=== PATIENT | female | born 1960 | race Caucasian/White ===

== ENCOUNTER 2022-04-06 08:42 | Outpatient (CLI) | payer OTHER, SELFPAY ==
--- NOTE | 2022-04-06 08:45 | CRLHL7_ITS ---
For Patients: As a result of the Century Cures Act, medical imaging exams and procedure reports are released immediately into your electronic medical record. You may view this report before your referring provider. If you have questions, please contact your health care provider. BILATERAL SCREENING MAMMOGRAM WITH COMPUTER-AIDED DETECTION AND TOMOSYNTHESIS TECHNIQUE: CC and MLO views were obtained. These mammographic images have been obtained using full-field digital technique. These mammographic images were interpreted with the benefit of computer-aided detection. Breast Tomosynthesis was used in this interpretation. COMPARISON FILM: 04/15/21, 03/31/20, 03/25/19. FINDINGS: The breasts are heterogeneously dense, which may obscure small masses IMPRESSION: There is no radiographic evidence for malignancy. ASSESSMENT: BI-RADS Category 1: Negative RECOMMENDATION: Routine screening mammogram in 1 year. A lay language report of this examination will be provided to the patient. Dario Kelly M.D. Diagnostic Radiologist [email or web address] SUSAN/Dictated by: Dario Kelly MD @ 04/06/2022 12:18:00 PM (Electronically Signed)
== END 2022-04-06 08:43 | disposition home or self-care (01) ==
LOC: MAMMO 08:43
PROVIDERS: PCP Internal Medicine; Visit Provider Internal Medicine
DX: Z12.31 Encounter for screening mammogram for malignant neoplasm of breast (principal); R92.2 Inconclusive mammogram
CPT/HCPCS: 77063; 77067

== ENCOUNTER 2022-09-13 07:47 | Outpatient (CLI) | payer OTHER, SELFPAY ==
[2022-09-13 11:14] LABS: Vitamin D 25 Hydroxy* 64 ng/mL (30-80)
== END 2022-09-13 07:48 | disposition home or self-care (01) ==
LOC: NFLDREF 07:48
PROVIDERS: PCP Internal Medicine; Visit Provider Internal Medicine
DX: E03.9 Hypothyroidism, unspecified (principal); M85.80 Other specified disorders of bone density and structure, unspecified site
CPT/HCPCS: 82306; 84443

== ENCOUNTER 2022-10-06 15:29 | Outpatient (CLI) | payer OTHER, SELFPAY ==
--- NOTE | 2022-10-06 15:30 | CRLHL7_ITS ---
For Patients: As a result of the Century Cures Act, medical imaging exams and procedure reports are released immediately into your electronic medical record. You may view this report before your referring provider. If you have questions, please contact your health care provider. DXA BONE MINERAL DENSITY STUDY Reason for exam: Osteopenia. Current height (in): 69.0 inches. Weight (lb): 136.0. Menopause age: 49. Ethnicity: White. 1. Have you had a previous hip or vertebral fracture? No. 2. Have you had any fractures during your adult life which did not result from significant trauma (e.g., auto accident)? No. 3. Did either of your parents have a hip fracture? No. 4. Do you smoke? No. 5. Have you ever taken Glucocorticoids? No. 6. Do you have rheumatoid arthritis? No. 7. Do you have secondary osteoporosis? No. 8. Do you drink 3 or more alcoholic drinks per day? No. 9. Are you being treated for osteoporosis? No. 10. Have you ever taken any of the following medications: Actonel, Evista, Fosamax, Miacalcin, Reclast, Boniva, Forteo, HRT (i.e. estrogen/hormone therapy), Protelos, Prolia, Vitamin D, Calcium, other ??? please specify. ANSWER: Yes, Fosamax, calcium. 11. Do you have any of the following medical conditions: Anorexia or bulimia, asthma or emphysema, end stage renal disease, hyperparathyroidism, any seizure disorders, cancer, inflammatory bowel diseases, hysterectomy, other ??? please specify. ANSWER: No. 12. What was your maximum height (inches)? 69. 13. Do you perform weight bearing exercise regularly? No. 14. Do you regularly consume dairy products? Yes. 15. Do you drink caffeinated beverages? Yes. 16. At what age did your period start? 15. 17. Are you premenopausal? No. 18. How many full term pregnancies have you had? 2. 19. Have you ever missed your period for more than 6 months in a row (not including or menopause)? No. TECHNIQUE: Bone mineral density study was performed using the [employer]. FINDINGS: The results of the study expressed as bone mineral density (BMD) are as follows: Lumbar spine L1 to L4: BMD: 0.976 g/cm2. T-score: -0.6. Z-score: 1.0. Neck Left: BMD: 0.661 g/cm2. T-score: -1.7. Z-score: -0.3. Right: BMD: 0.641 g/cm2. T-score: -1.9. Z-score: -0.5. Total Left: BMD: 0.824 g/cm2. T-score: -1.0. Z-score: 0.1. Right: BMD: 0.794 g/cm2. T-score: -1.2. Z-score: -0.1. IMPRESSION: Osteopenia. *Comparison exams done prior to 01/2020 were performed on different unit, [facility]. FRAX 10-year Fracture Risk Major Osteoporotic Fracture: 8.5 percent Hip Fracture: 1.1 percent Reported Risk Factors: [place] () Neck BMD=0.641, BMI=20.1 Dario Kelly M.D. Diagnostic Radiologist [email or web address] DSM/[email or web address] PT/Dictated by: Dario Kelly MD @ 10/07/2022 8:49:00 AM (Electronically Signed)
== END 2022-10-06 15:30 | disposition home or self-care (01) ==
LOC: RAD 15:30
PROVIDERS: PCP Internal Medicine; Visit Provider Internal Medicine
DX: M85.89 Other specified disorders of bone density and structure, multiple sites (principal)
CPT/HCPCS: 77080

== ENCOUNTER 2022-12-02 10:37 | Outpatient (CLI) | payer OTHER, SELFPAY | END 2022-12-02 10:38 | disposition home or self-care (01) | LOC: OP CLINIC 10:38 | PROVIDERS: PCP Internal Medicine; Visit Provider Internal Medicine | DX: Z12.11 Encounter for screening for malignant neoplasm of colon (principal); K57.30 Diverticulosis of large intestine without perforation or abscess without bleeding | CPT/HCPCS: 45378; J2250; J3010 ==

== ENCOUNTER 2023-01-10 15:45 | Outpatient (RCR) | payer OTHER, SELFPAY | END 2023-04-18 15:30 | disposition home or self-care (01) | PROVIDERS: PCP Internal Medicine; Visit Provider Internal Medicine | DX: M70.60 Trochanteric bursitis, unspecified hip (principal); M25.551 Pain in right hip; R53.1 Weakness; Z51.89 Encounter for other specified aftercare | CPT/HCPCS: 97110; 97140; 97161 ==

== ENCOUNTER 2023-07-21 13:20 | Outpatient (CLI) | payer OTHER, SELFPAY ==
--- NOTE | 2023-07-21 13:20 | CRLHL7_ITS ---
For Patients: As a result of the Cures Act, medical imaging exams and procedure reports are released immediately into your electronic medical record. You may view this report before your referring provider. If you have questions, please contact your health care provider. BILATERAL SCREENING MAMMOGRAM WITH COMPUTER-AIDED DETECTION AND TOMOSYNTHESIS TECHNIQUE: CC and MLO views were obtained. These mammographic images have been obtained using full-field digital technique. These mammographic images were interpreted with the benefit of computer-aided detection. Breast Tomosynthesis was used in this interpretation. COMPARISON FILM: 04/06/22, 04/15/21, 03/31/20. FINDINGS: The breasts are heterogeneously dense, which may obscure small masses IMPRESSION: There is no radiographic evidence for malignancy. ASSESSMENT: BI-RADS Category 1: Negative RECOMMENDATION: Routine screening mammogram in 1 year. A lay language report of this examination will be provided to the patient. Dario Kelly M.D. Diagnostic Radiologist [email or web address] Transcribed: 5:39 p.mYudith kraus/Dictated by: Dario Kelly MD @ 07/24/2023 12:30:00 PM (Electronically Signed)
== END 2023-07-21 13:21 | disposition home or self-care (01) ==
LOC: MAMMO 13:21
PROVIDERS: PCP Internal Medicine; Visit Provider Internal Medicine
DX: Z12.31 Encounter for screening mammogram for malignant neoplasm of breast (principal); R92.2 Inconclusive mammogram
CPT/HCPCS: 77063; 77067

== ENCOUNTER 2023-09-29 07:37 | Outpatient (CLI) | payer BC, SELFPAY ==
--- OUTSIDE RECORDS SUMMARY | 2023-10-02 08:44 | XMS_ITS | Clinical Summary ---
Author Name Unknown Organization [facility] Address [place], [place] [address] Care Team Providers Care Slunk Skinner Name Role Phone Cammy Kent MD Unavailable [phone] Pcp, No Primary Care Provider Unavailabl e Allergies Active Allergy Reactions Criticality Noted Date Comments Hydrocodone-Acetamin ophen Other - Describe In Comment Field 01/04/2018 Vertigo and cloudy thinking Medications Medication Sig Dispensed Refills Start Date End Date Status MULTIVITAMIN TAB take 1 tablet by oral route once daily with food 0 02/22/2007 Active medication order composer Fish oil, vitamin D, probiotic, Curcumin supplement, all by mouth once daily. 0 03/22/2017 Active Glucosam-Chond Sharma Sod-Vit C-Mn (GLUCOSAMINE-CHONDROI TIN COMPLX) 962-686-36-2.5 mg tab 0 02/27/2017 Act gayla calcium carbonate (CALCIUM 600) 600 mg calcium (1,500 mg) tablet Take 2 tablets by mouth 2 times daily with meals. 0 03/27/2018 Active levothyroxine (SYNTHROID) 50 mcg tabletIndications:Hyp othyroidism, unspecified type Take 1 tablet by mouth once daily. 90 tablet 3 03/27/2018 Active Active Problems Problem Noted Date Diagnosed Date Osteoarthritis of carpometacarpal joints of both thumbs 03/16/2016 Overview: Xray confirmed 02/2016, 2 cortisone injections in each thumb Osteopenia determined by x-ray 03/20/2015 Overview: DXA 02/2015 Routine adult health maintenance 02/19/2013 Overview: Colonoscopy 02/2013 normal repeat in 10 years Unspecified hypothyroidism 02/26/2009 Family history of thyroid disease 01/26/2009 Bunion 01/04/2008 Raynaud's syndrome 01/04/2008 Unspecified hearing loss 01/04/2008 Family history of malignant neoplasm of breast 0 01/04/2008 Adjustment disorder with mixed anxiety and depre ssed mood 08/29/2007 Immunizations Name Administration Dates Next Due AMB Influenza, IIV4 PF (=>6 mos Flulaval,Fluzone Fluarix)(Flu Clinic Only) 05/28/2018,05/29/2017,05/24/2016 Hepatitis A (Adult) 03/05/2013,12/09/2011 Hepatitis B (Adult) 01/06/2014,08/08/2013,2012 Influenza Virus, Unspecified 06/13/2014 Influenza, IIV3 (Age >=3 years) 06/04/2013 Influenza, IIV4 05/29/2017,05/24/2016 Td (Age >=7 Years) 09/04/2003 Tdap 03/05/2013 Typhoid (injectable) 07/16/2018,12/09/2011 Zoster (Zostavax-ZVL, live) 03/01/2011 Family History Medical History Relation Name Comments Good Health Brother 2 Good Health Daughter 1 Good Health Daughter 2 Heart Disease Father Other Father kidney stone Heart Disease Mother Cancer-breast Sister 1 Diagnosed age 50, now age 65 y, mets to bone, stage 4 Thyroid Disease Sister 2 Thyroid Disease Sister 3 Thyroid Disease Sister 4 Relation Name Status Comments Brother 1 Alive Brother 2 Daughter 1 Daughter 2 Father (Age 85) sudde nly Mother (Age 80) Sister 1 Sister 2 Sister 3 Sister 4 Social History Tobacco Use Types Packs/Day Years Used Date Smoking Tobacco: Never Smokeless Tobacco: Never Tobacco Cessation:Counseling Given: Yes Alcohol Use Standard Drinks/Week Comments Yes 1 (1 standard drink = 0.6 oz pur e alcohol) one glass of wine per week PHQ-2 Answer Date Recorded PHQ-2 Score 0 10/21/2018 Sex and Gender Information Value Date Recorded Sex Assigned at Not on file Gender Identity Not on file Sexual Orientation Not on file Obstetrics History Para Term AB IAB SAB Ectopic Multiple Livin g Live Births 2 2 Date Outcome GA Total Labor Labor/2nd/3rd Weight Sex Delivery Anes PTL Maris A1 A5 Name Cl in Last Filed Vital Signs Vital Sign Reading Time Taken Comments Blood Pressure 90/61 10/11/2018 3:53 PM PRECIPITATOR SUPERVISOR Pulse 62 10/11/2018 3:53 PM PRECIPITATOR SUPERVISOR Temperature 35.9 ??C (96.7 ??F) 07/16/2018 4:30 PM CS T Respiratory Rate - - Oxygen Saturation 97% 10/11/2018 3:53 PM PRECIPITATOR SUPERVISOR Inhaled Oxygen Concentration - - Weight 61.3 kg (135 lb 3.2 oz) 10/11/2018 3:53 P M PRECIPITATOR SUPERVISOR Height 174.3 cm (5' 8.62) 07/16/2018 4:30 PM CS T Body Mass Index 20.19 07/16/2018 4:30 PM PRECIPITATOR SUPERVISOR Plan of Treatment Health Maintenance Due Date Last Done Comments COVID-19 vaccine series (#1) 04/25/1960 HIV for age 15-65 10/23/1974 Zoster (shingles) series for age 50+ (2 of 3) 04/26/2011 03/01/2011 Mammogram for age 45-75 03/27/2019 03/27/20 18, 03/16/2017, 03/15/2016, Additional history exists Depression screening for age 12+ 03/29/2019 03/29/2018, 03/27/2018, 03/22/2017, Additional history exists BMI (ht and wt on same day) for age 18+ 07/16/2019 07/16/2018, 03/27/2018, 01/04/2018, Additional history exists Pap test for age 21-65 03/27/2021 8, 03/11/2015, 03/11/2015, Additional history exists Colonoscopy through age 75 02/19/2023 02/19/2013, Tetanus booster 03/05/2023 03/05/2013, 09/04/2003 Lipids for age 45-75 03/27/2023 03/27/2018, 03/15/2016, 03/07/2014, Additional history exists Influenza for age 50-64 04/21/2023 05/28/20 18, 05/29/2017, 05/29/2017, Additional history exists Tdap Completed 03/05/2013 Hepatitis C screening for age 18-79 Completed 03/07/2014 Pneumococcal series for age 6-64 Aged Out No longer eligible based on patient's age to complete this topic Care Teams Slunk Skinner Relationship Specialty Start Date End Date Pcp, No . PCP - General 10/11/18 Cammy Kent MD Surgery - Orthopedics 03/22/17
== END 2023-09-29 07:38 | disposition home or self-care (01) ==
LOC: NFLDREF 10-02 08:30
PROVIDERS: PCP Internal Medicine; Referring Provider Internal Medicine; Visit Provider Internal Medicine
DX: E03.9 Hypothyroidism, unspecified (principal); M85.80 Other specified disorders of bone density and structure, unspecified site; Z13.1 Encounter for screening for diabetes mellitus; Z13.220 Encounter for screening for lipoid disorders
CPT/HCPCS: 80061; 82306; 82947; 84439; 84443

== ENCOUNTER 2024-01-30 08:05 | Outpatient (CLI) | payer BC, SELFPAY ==
--- OUTSIDE RECORDS SUMMARY | 2024-01-30 08:07 | XMS_ITS | Clinical Summary ---
Author Organization [facility] Address [place], [place] [address] Care Team Providers Care Recreation Therapy Aide Name Role Phone Cammy Kent MD Unavailable [phone] Pcp, No Primary Care Provider Unavailabl e [...] Glucosam-Chond Sharma Sod-Vit C-Mn (GLUCOSAMINE-CHONDROI TIN COMPLX) [id number] mg tab 02/27/2017 Act gayla calcium carbonate (CALCIUM 600) [...] Outcome GA Total Labor Labor/2nd/3rd Weight Sex Type Anes PTL Maris A1 A5 Name Clin Last Filed Vital Signs Vital Sign Reading Time Taken Comments Blood Pressure 90/61 10/11/2018 3:53 PM SUPERVISOR HYDROCHLORIC AREA Pulse 62 10/11/2018 3:53 PM SUPERVISOR HYDROCHLORIC AREA Temperature 35.9 ??C (96.7 ??F) 07/16/2018 4:30 PM CS T Respiratory Rate - - Oxygen Saturation 97% 10/11/2018 3:53 PM SUPERVISOR [employer]OCHLORIC AREA Inhaled Oxygen Concentration - - Weight 61.3 kg (135 lb 3.2 oz) 10/11/2018 3:53 P M SUPERVISOR [employer]CH[employer]IC [employer] Height 174.3 cm (5' 8.62) 07/16/2018 4:30 PM CS T Body Mass Index 20.19 07/16/2018 4:30 PM SUPERVISOR [employer]CHLORIC [employer] Plan of Treatment Health Maintenance Due Date Last Done Comments HIV for age 15-65 10/23/1974 Zoster (shingles) [...] 03/27/2023 03/27/2018, 03/15/2016, 03/07/2014, Additional history exists COVID-19 vaccine series (2022- season) 2023 Influenza for age 50-64 04/21/2024 05/28/20 18, 05/29/2017, 05/29/2017, Additional history exists Tdap Completed 03/05/2013 Hepatitis C screening for age 18-79 Completed 03/07/2014 Pneumococcal series for age 6-64 Aged Out No longer eligible based on patient's age to complete this topic Procedures Procedure Name Priority Date/Time Associated Diagnosis Comments PORCELAIN ENAMELER THIN PREP PAP SCREEN IMAGED Routine 03/27/2018 10:00 AM CDT Screening for malignant neoplasm of cervix LIPID PANEL Routine 03/27/2018 9:49 AM CDT Screening cholesterol level XR MAMMO BILAT SCREENING Routine 03/27/2018 9:18 AM CDT Visit for screening mammogram ANTI HCV Routine 03/07/2014 9:02 AM CDT Need for hepatitis C screening test from Last 3 Months or Most Recently Relevant to Health Maintenance Results * PORCELAIN ENAMELER THIN PREP PAP SCREEN IMAGED [[id number]] (03/27/2018 10:00 AM CDT) Case Report Gynecologic Cytology Report ? Case: [id number] ? Authorizing Provider: ??Shaye June ? Collected: ? 03/27/2018 1000 ? RED Ruiz ? Ordering Location: ? [facility] ?? Received: ?03/27/2018 1119 ? Clinic ? First Screen: ?Barbara Velázquez ? Specimen: ?PORCELAIN ENAMELER ThinPrep Vial Screening, Cervical ? 04/07/2018 3:14 PM CDT [facility] ENTRAL LABORATORY INTERPRETATION/ RESULT NEGATIVE FOR INTRAEPITHELIAL LESION OR MALIGNANCY (NIL) (none) 04/07/2018 3:14 PM CDT [facility] [employer] LABORATORY ENTRAL LABORATORY IMEN ADEQUACY Satisfactory for evaluation Endocervical cells cannot be evaluated due to severe atrophy 04/07/2018 3:14 PM CDT [facility] [employer] LABORATORY- ENTRAL LABORATORY HPV REQUEST HPV if ASCUS 04/07/2018 3:14 PM CDT [facility] [employer] LABORATORY-C ENTRAL LABORATORY Date of LMP 200704/07/2018 3:14 PM CDT [facility] [employer] LABORATORY-C ENTRAL LABORATORY Last Pap Date 03/11/15 04/07/2018 3:14 PM CDT [facility] [employer] LABORATORY-C ENTRAL LABORATORY Last Pap Result NIL 3:14 PM CDT [facility] [employer] LABORATORY-C ENTRAL LABORATORY Abnormal Pap or [place]ox Bx in last 5 years No 04/07/2018 3:14 PM CDT [facility] LABORATORY-C ENTRAL LABORATORY Menstrual Status Postmenopausal 04/07/2018 3:14 PM CDT [facility] [employer] LABORATORY-C ENTRAL LABORATORY [place] Bx Done Today No 04/07/2018 3:14 PM CDT [facility] [employer] [facility]-C ENTRAL LABORATORY Additional Information None given 04/07/2018 3:14 PM CDT [facility]- ENTRMI LABORATORY Automated Review Successful 04/07/2018 3:14 PM CDT [facility] ENTRMI LABORATORY Comment:Specimen processed s uccessfully by automated carpet journeyman device, ThinPrep Imaging System, [employer] Note The pap test is a screening technique, not a diagnostic procedure. ??It is used primarily to screen for squamous cancers and precursor lesions. ??Published studies have shown that it is subject to both false negative and false positive results. ??The pap test should not be used as the sole means to diagnose or exclude pre-malignant and malignant lesions. Cytology is screened and interpreted at [facility] - [address], [place] [address] and [facility] - [address]; [place] [address] and [facility] - [address]; [place] [address] and [facility] [address]; [place] [address] 04/07/2018 3:14 PM CDT [facility] LABOR[facility] Other (Cervical) Non-Blood / Unknown 03/27/2018 10:00 AM CDT 03/27/2018 11:19 AM CDT Shaye Menjivar NP PATHOLOGY /CYTOLOGY [facility] [address] [place] [address], [place] * LIPID PANEL (03/27/2018 9:49 AM CDT) CHOLESTEROL,TOTAL 174 100 - 199 mg/dL 03/27/2018 9:15 PM CDT [facility] TRAL LABORATORY TRIGLYCERIDES 78 <150 mg/dL 03/27/2018 9:15 PM CDT [facility] TRAL LABORATORY HDL CHOLESTEROL 68 >40 mg/dL 8 9:15 PM CDT [facility] TRAL LABORATORY NON-HDL CHOLESTEROL 106 <145 mg/dl 03/27/2018 9:15 PM CDT [facility] TRAL LABORATORY CHOL/HDL RATIO 2.56 <4.50 03/27/2018 9:15 PM CDT [facility] TRAL LABORATORY LDL CHOLESTEROL 90 <=130 mg/dL 03/27/2018 9:15 PM CDT [facility] TRAL LABORATORY PROVIDER ORDERED STATUS RANDOM 03/27/2018 9:15 PM CDT [facility] TRAL LABORATORY Blood BLOOD SPECIMEN / Unknown Venipuncture / Unknown 03/27/2018 9:49 AM CDT 03/27/2018 9:49 AM CDT Shaye Menjivar NP CHEMISTRY [facility] [address] [place] [address], * XR MAMMO BILAT SCREENING (03/27/2018 9:18 AM CDT) Anatomical Region Laterality Modality BREASTS, Breast Left, Breast Right Bilateral Mammography Impressions 03/27/2018 12:33 PM CDT ??There is no radiographic evidence for malignancy. ??Recommend annual mammograms. A lay language report of this examination will be provided to the patient. MAMMOGRAM ASSESSMENT: ??ACR 2 Benign Narrative 03/27/2018 12:33 PM CDT XR MAMMO BILAT SCREENING [[id number]] CLINICAL HISTORY: ??This is an asymptomatic 57 y.o. patient. INDICATION FOR EXAM: Mammogram Screening. TECHNIQUE: CC & MLO views were obtained. ??This digital study was evaluated with the assistance of Computer-Aided Detection. COMPARISON FILMS: Yes 03/16/17 [facility] 03/15/16 [facility] FINDINGS: ??Mammographically, the breast tissue is heterogeneously dense. ?? No suspicious masses or microcalcifications. ??Benign appearing calcifications within both breasts and Benign appearing asymmetry within left breast. Shaye Menjivar NP MAMMO * ANTI HCV (03/07/2014 9:02 AM CDT) HEPATITIS C ANTIBODY Non-Reacti ve Non-Reacti ve 03/07/2014 1:35 PM CDT [facility] TRAL LABORATORY Blood specimen (specimen) BLOOD SPECIMEN / Unknown Venipuncture / Unknown 03/07/2014 9:02 AM CDT 03/07/2014 9:03 AM CDT Narrative [facility] - 03/07/2014 1:35 PM CDT Antibodies to HCV not detected; does not exclude the possibility of exposure to HCV. Shaye Menjivar DIRECTOR EQUIPMENT SEND OUTS [facility] [address] [place] [address], from Last 3 Months or Most Recently Relevant to Health Maintenance Care Teams Recreation Therapy Aide Relationship Specialty Start Date End Date Pcp, No . PCP - General 10/11/18 Cammy Kent MD Surgery - Orthopedics 03/22/17
--- NOTE | 2024-01-30 08:15 | CRLHL7_ITS ---
For Patients: As a result of the 21st Century Cures Act, medical imaging exams and procedure reports are released immediately into your electronic medical record. You may view this report before your referring provider. If you have questions, please contact your health care provider. INDICATION: Chronic low back pain. Left hip pain. TECHNIQUE : Lumbar spine MRI without contrast. COMPARISON: None. FINDINGS : Five lumbar type vertebral bodies, with the last fully formed disc space designated as L5-S1. Normal lumbar lordosis. Mild levoconvex lumbar scoliosis. No acute compression fractures. Bilateral L4 and L5 pedicle fractures/stress defects with associated bone marrow edema. Lower cord/conus signal is normal. The conus terminates at a normal location. No intradural lesion. No extraspinal soft tissue abnormalities. Discs/Endplates: Advanced disc height loss, disc desiccation and degenerative endplate remodeling at L4-5 centrally especially on the right and L5-S1 associated type 1 reactive marrow changes at these levels. Mild disc height loss and disc desiccation elsewhere. Findings at individual levels as follows: T11-12: No spinal canal or neural foraminal stenosis. T12-L1: No spinal canal or neural foraminal stenosis. L1-2: Mild disc bulge with shallow central protrusion component. No spinal canal or neural foraminal stenosis. L2-3: Mild disc bulge. Bilateral facet arthrosis. No substantial spinal canal or neural foraminal stenosis. L3-4: Mild disc bulge. Bilateral facet arthrosis. No spinal canal or neural foraminal stenosis. L4-5: Moderate disc bulge with overlying osteophytic ridging, asymmetric to the right. A superimposed right far lateral protrusion component which contacts the right L4 nerve root. Bilateral facet arthrosis. Mild spinal canal stenosis and mild bilateral neural foraminal stenosis. L5-S1: Trace anterolisthesis. Moderate disc bulge with underlying osteophytic ridging, asymmetric to the left. Left-sided facet arthrosis. Moderate left neural foraminal stenosis. No right neural foraminal stenosis or spinal canal stenosis. Imaged SI joints: Bilateral arthrosis. Imaged sacrum: Within normal limits. IMPRESSION: 1. Bilateral L4 and L5 pedicle fractures/stress defects with associated bone marrow edema. 2. At L4-5, right far lateral protrusion which contacts the right L4 nerve root. 3. At L5-S1, moderate left neural foraminal stenosis. 4. Disc degeneration most advanced at L4-5 and L5-S1, where there is accompanying type 1 reactive marrow changes. Dictated by Nikolai Evans MD @ 01/30/2024 3:59:13 PM (Electronically Signed)
== END 2024-01-30 08:06 | disposition home or self-care (01) ==
LOC: MRI 08:06
PROVIDERS: PCP Internal Medicine; Visit Provider Internal Medicine
DX: M54.50 Low back pain, unspecified (principal); M51.26 Other intervertebral disc displacement, lumbar region; M48.07 Spinal stenosis, lumbosacral region; M51.36 Other intervertebral disc degeneration, lumbar region; M51.37 Other intervertebral disc degeneration, lumbosacral region
CPT/HCPCS: 72148

== ENCOUNTER 2024-02-12 08:58 | Outpatient (CLI) | payer BC, SELFPAY ==
--- OUTSIDE RECORDS SUMMARY | 2024-02-12 09:37 | XMS_ITS | Clinical Summary ---
Author Organization [employer] [facility] Address [place], [place] [address] Care Team Providers Care Certified Nurse Midwife Name Role Phone Cammy Kent MD Unavailable [phone] Pcp, No Primary Care Provider Unavailabl e [...] Glucosam-Chond Sharma Sod-Vit C-Mn (GLUCOSAMINE-CHONDROI TIN COMPLX) [phone] mg tab 02/27/2017 Act gayla calcium carbonate [...] Comments Blood Pressure 90/61 10/11/2018 3:53 PM PLASTER MOLDER Pulse 62 10/11/2018 3:53 PM PLASTER MOLDER Temperature 35.9 ??C (96.7 ??F) 07/16/2018 4:30 PM CS T Respiratory Rate - - Oxygen Saturation 97% 10/11/2018 3:53 PM PLASTER MOLDER Inhaled Oxygen Concentration - - Weight 61.3 kg (135 lb 3.2 oz) 10/11/2018 3:53 P M PLASTER MOLDER Height 174.3 cm (5' 8.62) 07/16/2018 4:30 PM CS T Body Mass Index 20.19 07/16/2018 4:30 PM PLASTER MOLDER Plan of Treatment Health Maintenance Due Date [...] Procedure Name Priority Date/Time Associated Diagnosis Comments CERTIFIED HYPERBARIC TECHNOLOGIST THIN PREP PAP SCREEN IMAGED Routine 03/27/2018 [...] Recently Relevant to Health Maintenance Results * CERTIFIED HYPERBARIC TECHNOLOGIST THIN PREP PAP SCREEN IMAGED [[id number]] (03/27/2018 10:00 AM CDT) Case Report Gynecologic Cytology Report ? Case: [id number] ? Authorizing Provider: ??Shaye June ? Collected: ? 03/27/2018 1000 ? RED Ruiz ? Ordering Location: ? [facility] ?? Received: ?03/27/2018 1119 ? Clinic ? First Screen: ?Barbara Velázquez ? Specimen: ?CERTIFIED HYPERBARIC TECHNOLOGIST ThinPrep Vial Screening, Cervical ? 04/07/2018 3:14 PM CDT [facility] ENTRAL LABORATORY INTERPRETATION/ RESULT NEGATIVE FOR INTRAEPITHELIAL LESION OR MALIGNANCY (NIL) (none) 04/07/2018 3:14 PM CDT [facility] LABORATORY ENTRAL LABORATORY IMEN ADEQUACY Satisfactory for evaluation Endocervical cells cannot be evaluated due to severe atrophy 04/07/2018 3:14 PM CDT [facility] LABORATORY- ENTRAL LABORATORY HPV REQUEST HPV if ASCUS 04/07/2018 3:14 PM CDT [facility] LABORATORY-C ENTRAL LABORATORY Date of LMP 200704/07/2018 3:14 PM CDT [facility] LABORATORY-C ENTRAL LABORATORY Last Pap Date 03/11/15 04/07/2018 3:14 PM CDT [facility] LABORATORY-C ENTRAL LABORATORY Last Pap Result NIL 3:14 PM CDT [facility] LABORATORY-C ENTRAL LABORATORY Abnormal Pap or Sutherland Bx in last 5 years No 04/07/2018 3:14 PM CDT [facility] LABORATORY-C ENTRAL LABORATORY Menstrual Status Postmenopausal 04/07/2018 3:14 PM CDT [facility] LABORATORY-C ENTRAL LABORATORY Sutherland Bx Done Today No 04/07/2018 3:14 PM CDT [facility] [employer] [facility]-C ENTRAL LABORATORY Additional Information None given 04/07/2018 3:14 PM CDT [facility]- [facility]TRAK LABORATORY Automated Review Successful 04/07/2018 3:14 PM CDT [facility]TRAK LABORATORY Comment:Specimen processed s uccessfully by automated child guidance counselor device, ThinPrep Imaging System, [employer] Note The pap test is a [...] lesions. Cytology is screened and interpreted at [facility] - [address], [place] [address] and [facility] - [address]; [place] [address] and [facility] - [address]; [place] [address] and [facility] [address]; [place] [address] 04/07/2018 3:14 PM CDT [facility] Other (Cervical) Non-Blood / Unknown 03/27/2018 10:00 AM CDT 03/27/2018 11:19 AM CDT Shaye Menjivar NP PATHOLOGY /CYTOLOGY [facility] [address] [place] [address], [place] * LIPID PANEL (03/27/2018 9:49 AM CDT) CHOLESTEROL,TOTAL 174 100 - 199 mg/dL 03/27/2018 9:15 PM CDT [facility] TRAL LABORATORY TRIGLYCERIDES 78 <150 mg/dL 03/27/2018 9:15 PM CDT [facility] HDL CHOLESTEROL 68 >40 mg/dL 8 9:15 PM CDT [facility] NON-HDL CHOLESTEROL 106 <145 mg/dl 03/27/2018 9:15 PM CDT [facility] CHOL/HDL RATIO 2.56 <4.50 03/27/2018 9:15 PM CDT [facility] LDL CHOLESTEROL 90 <=130 mg/dL 03/27/2018 9:15 PM CDT [facility] PROVIDER ORDERED STATUS RANDOM 03/27/2018 9:15 PM CDT [facility] Blood BLOOD SPECIMEN / Unknown Venipuncture / Unknown 03/27/2018 9:49 AM CDT 03/27/2018 9:49 AM CDT Shaye Menjivar NP CHEMISTRY [facility] [address] [place] [address], * XR MAMMO BILAT SCREENING (03/27/2018 9:18 AM CDT) Anatomical Region Laterality Modality BREASTS, Breast Left, Breast Right Bilateral Mammography Impressions 03/27/2018 12:33 PM CDT ??There is no radiographic evidence for malignancy. ??Recommend annual mammograms. A lay language report of this examination will be provided to the patient. MAMMOGRAM ASSESSMENT: ??ACR 2 Benign Narrative 03/27/2018 12:33 PM CDT XR MAMMO BILAT SCREENING [[id number]] CLINICAL HISTORY: ??This is an asymptomatic 57 y.o. patient. INDICATION FOR EXAM: Mammogram Screening. TECHNIQUE: CC & MLO views were obtained. ??This digital study was evaluated with the assistance of Computer-Aided Detection. COMPARISON FILMS: Yes 03/16/17 [facility] 03/15/16 [facility] FINDINGS: ??Mammographically, the breast tissue is heterogeneously dense. ?? No suspicious masses or microcalcifications. ??Benign appearing calcifications within both breasts and Benign appearing asymmetry within left breast. Shaye Menjivar NP MAMMO * ANTI HCV (03/07/2014 9:02 AM CDT) HEPATITIS C ANTIBODY Non-Reacti ve Non-Reacti ve 03/07/2014 1:35 PM CDT [facility] Blood specimen (specimen) BLOOD SPECIMEN / Unknown Venipuncture / Unknown 03/07/2014 9:02 AM CDT 03/07/2014 9:03 AM CDT Narrative [facility] - 03/07/2014 1:35 PM CDT Antibodies to HCV not detected; does not exclude the possibility of exposure to HCV. Shaye Menjivar MEDICAL EQUIPMENT REPAIR TECHNICIAN SEND OUTS [facility] [address] [place] [address], from Last 3 Months or Most Recently Relevant to Health Maintenance Care Teams Certified Nurse Midwife Relationship Specialty Start Date End Date Pcp, No . PCP - General 10/11/18 Cammy Kent MD Surgery - Orthopedics 03/22/17
== END 2024-02-12 08:59 | disposition home or self-care (01) ==
PROVIDERS: PCP Internal Medicine; Visit Provider Internal Medicine
DX: M80.08XA Age-related osteoporosis with current pathological fracture, vertebra(e), initial encounter for fracture (principal)
CPT/HCPCS: 80053; 83735; 83970; 84100; 84443

== ENCOUNTER 2024-05-13 08:15 | Outpatient (RCR) | payer BC, SELFPAY | END 2024-05-13 09:07 | disposition home or self-care (01) | PROVIDERS: PCP Internal Medicine; Visit Provider Internal Medicine | DX: M54.50 Low back pain, unspecified (principal); Z51.89 Encounter for other specified aftercare | CPT/HCPCS: 97110; 97162 ==

== ENCOUNTER 2024-06-10 08:57 | Outpatient (CLI) | payer BC, SELFPAY ==
--- OUTSIDE RECORDS SUMMARY | 2024-06-11 16:42 | XMS_ITS | Clinical Summary ---
Author Organization Replaced by [facility] Address [address] [place] [address] Care Team Providers Care Quilt Sewer Name Role Phone Unavailable Primary Care Provider Unavailabl e Source Comments You are receiving this document as you are listed as the primary care provider,follow-up provider, or the patient has been referred to you for consultation.This is in compliance with the Medicare andCommunity Memorial Hospitalcaid EHR Incentive Program,which states Providers who transition their patient to another setting of careor provider of care or refers their patient to another provider of care shouldprovide summary care record for each transition of care or referral. Embrane Medications Medication Sig Dispensed Refills Start Date End Date Status levothyroxine (SYNTHROID) 75 MCG tablet TAKE 1 TABLET(75 MCG) BY MOUTH DAILY 1 HOUR BEFORE OR 2 HOURS AFTER A MEAL 90 Tablet 2 06/11/2024 Active levothyroxine (SYNTHROID) 75 MCG tablet Take 1 Tablet (75 mcg) by mouth daily. Take at least one hour before or two hours after meal. 90 Tablet 03/13/2024 06/11/2024 Discontinued Encounters Date Type Department Care Team Description 06/09/2024 Refill [facility] [address] [facility] [address] [facility] [place] [address] Milka Obando MD Refill (levothyroxine (SYNTHROID) 75 MCG tablet [Pharmacy Med Name: LEVOTHYROXINE 0.075MG (75MCG) TABS]) 03/11/2024 8:40 AM CDT Lab Visit [facility] [address] [place] [address] Localized osteoporosis with current pathological fracture, initial encounter; Stress fracture of lumbar vertebra, initial encounter; Hypothyroidism (acquired) ([facility]) from Last 3 Months Social History Tobacco Use Types Packs/Day Years Used Date Smoking Tobacco: Never Assessed Sex and Gender Information Value Date Recorded Sex Assigned at Female 03/06/2024 7:33 PM CDT Gender Identity Female 03/06/2024 7:33 PM CDT Sexual Orientation Straight 03/06/2024 7: 33 PM CDT Plan of Treatment Health Maintenance Due Date Last Done Comments Cervical Cancer Screening Due 1960 Colon Cancer Screening Plan Due 1959 Hep C Screening (Preventive Services) 1959 HIV Screening (Preventive Services) 1975 Adult Preventive Visit 10/23/1977 Cholesterol 10/23/2004 Mammogram 03/27/2019 03/27/2018 COVID-19 Vaccine ( season) 2024 05/23/2023, 03/01/2022, 07/11/2021, Additional history exists Influenza (#1) 2024 05/23/2023, 10/2021, 05/18/2021, Additional history exists DTaP/Tdap/Td (3 - Tdap) 09/19/2032 09/19/19, 03/05/2013, 09/04/2003 RSV (1 - 1-dose 75+ series) 10/23/2034 HepA Aged Out 03/05/2013, 12/09/2011 No lo nger eligible based on patient's age to complete this topic Zoster/Shingles Completed 06/19/2019, 01/2019, 03/01/2011 HepB Aged Out No longer eligi ble based on patient's age to complete this topic Hib Aged Out No longer eligi ble based on patient's age to complete this topic IPV (Polio) Aged Out No longer eligi ble based on patient's age to complete this topic Infant RSV Aged Out No longer eligi ble based on patient's age to complete this topic MCV4 Aged Out No longer eligi ble based on patient's age to complete this topic Pneumococcal Aged Out No longer eligi ble based on patient's age to complete this topic Procedures Procedure Name Priority Date/Time Associated Diagnosis Comments CREATININE, UR 24 HR Routine 03/11/2024 8:42 AM CDT Localized osteoporosis with current pathological fracture, initial encounter Stress fracture of lumbar vertebra, initial encounter Hypothyroidism (acquired) ([facility]) CALCIUM UR 24 HR Routine 03/11/2024 8:42 AM CDT Localized osteoporosis with current pathological fracture, initial encounter Stress fracture of lumbar vertebra, initial encounter Hypothyroidism (acquired) ([facility]) from Last 3 Months Results * Creatinine, Urine 24 Hr (03/11/2024 8:42 AM CDT) Urine Volume 2,100 mL 03/11/2024 10:25 AM CDT [facility] Creatinine, Urine, Random 50 >20 mg/dL 03/11/2024 10:25 AM CDT [facility] Creatinine, Urine, 24 Hours 1,050 670 - 1,590 mg/24 Hr 03/11/2024 10:25 AM CDT [facility] Urine Non-blood Collection / Unknown 03/11/2024 8:42 AM CDT 03/11/2024 8:42 AM CDT Milka Obando MD LAB_1 [facility] [address] [place] [address] [address] [place] [address] * Calcium Urine 24 Hr (03/11/2024 8:42 AM CDT) Urine Volume 2,100 mL 03/11/2024 1:49 PM CDT [facility] Calcium, Urine, Random 14.2 mg/dL 03/11/2024 1:49 PM CDT [facility] Calcium, Urine, 24 Hours 298 100 - 300 mg/24 hr 03/11/2024 1:49 PM CDT [facility] Creatinine, Urine, Random 47 >20 mg/dL 03/11/2024 1:49 PM CDT [facility] Urine Non-blood Collection / Unknown 03/11/2024 8:42 AM CDT 03/11/2024 8:42 AM CDT Milka Obando MD LAB_1 [facility] [address] [place] [address], [facility] [address] [place] [address], [facility] from Last 3 Months
--- OUTSIDE RECORDS SUMMARY | 2024-06-11 16:42 | XMS_ITS | Encounter Summary ---
Author Organization [facility] Address [address] [place] [address] Care Team Providers Care Linux Kernel Developer Name Role Phone Unavailable Primary Care Provider Unavailabl e Encounter Details Date Type Department Care Team (Late st Contact Info) Description 03/11/2024 8:40 AM CDT Lab Visit [facility] [address] [place] [address] Localized osteoporosis with current pathological fracture, initial encounter; Stress fracture of lumbar vertebra, initial encounter; Hypothyroidism (acquired) ([facility]) Social History Tobacco Use Types Packs/Day Years Used Date Smoking Tobacco: Never Assessed Sex and Gender Information Value Date Recorded Sex Assigned at Female 03/06/2024 7:33 PM CDT Gender Identity Female 03/06/2024 7:33 PM CDT Sexual Orientation Straight 03/06/2024 7: 33 PM CDT documented as of this encounter Plan of Treatment Not on file documented as of this encounter Procedures Procedure Name Priority Date/Time Associated Diagnosis Comments CREATININE, UR 24 HR Routine 03/11/2024 8:42 AM CDT Localized osteoporosis with current pathological fracture, initial encounter Stress fracture of lumbar vertebra, initial encounter Hypothyroidism (acquired) ([facility]) CALCIUM UR 24 HR Routine 03/11/2024 8:42 AM CDT Localized osteoporosis with current pathological fracture, initial encounter Stress fracture of lumbar vertebra, initial encounter Hypothyroidism (acquired) ([facility]) documented in this encounter Results * Creatinine, Urine 24 Hr (03/11/2024 8:42 AM CDT) Urine Volume 2,100 mL 03/11/2024 10:25 AM CDT [facility] Creatinine, Urine, Random 50 >20 mg/dL 03/11/2024 10:25 AM CDT [facility] Creatinine, Urine, 24 Hours 1,050 670 - 1,590 mg/24 Hr 03/11/2024 10:25 AM CDT [facility] Urine Non-blood Collection / Unknown 03/11/2024 8:42 AM CDT 03/11/2024 8:42 AM CDT Milka Obando MD LAB_1 [facility] [address] [place] [address] [address] [place] [address] * Calcium Urine 24 Hr (03/11/2024 8:42 AM CDT) Urine Volume 2,100 mL 03/11/2024 1:49 PM CDT [facility] Calcium, Urine, Random 14.2 mg/dL 03/11/2024 1:49 PM CDT [facility] Calcium, Urine, 24 Hours 298 100 - 300 mg/24 hr 03/11/2024 1:49 PM CDT [facility] Creatinine, Urine, Random 47 >20 mg/dL 03/11/2024 1:49 PM CDT [facility] Urine Non-blood Collection / Unknown 03/11/2024 8:42 AM CDT 03/11/2024 8:42 AM CDT Milka Obando MD LAB_1 [facility] [address] [place], [place] [address] [address] [place] [address] documented in this encounter Visit Diagnoses Diagnosis Localized osteoporosis with current pathological fracture, initial encounter Stress fracture of lumbar vertebra, initial encounter Hypothyroidism (acquired) ([facility]) Unspecified hypothyroidism documented in this encounter
--- OUTSIDE RECORDS SUMMARY | 2024-06-11 16:42 | XMS_ITS | Encounter Summary ---
Author Organization [facility] Address [address] [address] Care Team Providers Care Farm General Manager Name Role Phone Unavailable Primary Care Provider Unavailabl e Encounter Details Date Type Department Care Team (Late st Contact Info) Description 03/08/2024 9:40 AM CDT Lab Visit [facility] [address] [place] [address] Routine general medical examination at health care facility Social History Tobacco Use Types Packs/Day Years [...] Procedure Name Priority Date/Time Associated Diagnosis Comments CONTAINER TEST Routine 03/08/2024 9:14 AM CDT Routine general medical examination at health care facility URINE CONTAINER, 24 HOUR Routine 03/08/2024 9:14 AM CDT Routine general medical examination at health care facility documented in this encounter Results * Urine Container, 24 Hour (03/08/2024 9:14 AM CDT) Container Given Done 03/08/2024 3:00 PM CDT [facility] Other Specimen Type 03/08/2024 9:14 AM CDT 03/08/2024 1:18 PM CDT Milka Obando MD LAB_1 Performing Organization Address City/State/[facility] Co de Phone Number [facility] [address] [place] [address] documented in this encounter Visit Diagnoses Diagnosis Routine general medical examination at health care facility Routine general medical examination at a health care facility documented in this encounter
--- OUTSIDE RECORDS SUMMARY | 2024-06-11 16:42 | XMS_ITS | Encounter Summary ---
Author Organization [facility] Address [address] [place] [address] Care Team Providers Care Parts Casting Machine Operator Name Role Phone Unavailable Primary Care Provider Unavailabl e Reason for Visit * Reason Comments Refill levothyroxine (SYNTH ROID) 75 MCG tablet [Pharmacy Med Name: LEVOTHYROXINE 0.075MG (75MCG) TABS] Encounter Details Date Type Department Care Team (Late st Contact Info) Description 06/09/2024 Refill [place] [address] [place] [address]. [place], [place] [id number] Radha Obando MD [address] [place] [phone] Refill (levothyroxine (SYNTHROID) 75 MCG tablet [Pharmacy Med Name: LEVOTHYROXINE 0.075MG (75MCG) TABS]) Social History Tobacco Use Types Packs/Day Years Used Date Smoking Tobacco: Never Assessed Sex and Gender Information Value Date Recorded Sex Assigned at Female 03/06/2024 7:33 PM CDT Gender Identity Female 03/06/2024 7:33 PM CDT Sexual Orientation Straight 03/06/2024 7: 33 PM CDT documented as of this encounter Nursing Notes * Laurie Ansari, RN - 06/11/2024 1:31 PM CDT Please advise on Rx dose since labs have been drawn, thank you! Component Latest Ref Rng 03/08/2024 TSH, Sensitive 0.30 - 4.50 uIU/mL 4.82 (H) Legend: (H) High * Jessika Mcadams - 06/09/2024 3:51 AM CDT levothyroxine (SYNTHROID) 75 MCG tablet [Pharmacy Med Name: LEVOTHYROXINE 0.075MG (75MCG) TABS] Hypothyroidism -> TSH is abnormal (4.82 mIU/L lies outside 0.2 mIU/L - 4.5 mIU/L) -> Refill x 9 months, qty: 90, refills: 2 (until due for an office visit) Last qualifying visit: 03/07/2024 (in [facility] ENDOCRINOLOGY) Next scheduled visit: None Last ordered by RADHA OBANDO L: 03/13/2024 (88 days ago) QTY: 90, Refills: 0, Sig: take 1 tablet (75 mcg) by mouth daily. take at least one hour before or two hours after meal. (changed but equivalent) TSH: 4.82 mIU/L on 03/08/2024 [facility] Embedded Refills, Reference: [id number], 06/09/2024 3:51:43 AM JACKIET, Isaias: TODD PNREFRUDOLPH ([id number]) documented in this encounter Plan of Treatment Not on file documented as of this encounter Visit Diagnoses Not on filedocumented in this encounter
--- OUTSIDE RECORDS SUMMARY | 2024-06-11 16:42 | XMS_ITS | Clinical Summary ---
Author Organization [facility] Address [place], [place] [address] Care Team Providers Care Media Associate Name Role Phone Cammy Kent MD Unavailable [phone] Pcp, No Primary Care Provider Unavailabl e [...] Glucosam-Chond Sharma Sod-Vit C-Mn (GLUCOSAMINE-CHONDROI TIN COMPLX) [phone] mg tab 02/27/2017 Act gayla calcium carbonate (CALCIUM 600) 600 mg calcium (1,500 mg) tablet Take 2 tablets by mouth 2 times daily with meals. 0 03/27/2018 Active levothyroxine (SYNTHROID) 50 mcg tabletIndications:Hyp othyroidism, unspecified type Take 1 tablet by mouth once daily. 90 tablet 3 03/27/2018 Active Active Problems Problem Noted Date Diagnosed Date Osteoarthritis of carpometacarpal joints of both thumbs 03/16/2016 Overview (03/22/2017): Xray confirmed 02/2016, 2 cortisone injections in each thumb Osteopenia determined by x-ray 03/20/2015 Overview (03/20/2015): DXA 02/2015 Routine adult health maintenance 02/19/2013 Overview (02/19/2013): Colonoscopy 02/2013 normal repeat in 10 years [...] Comments Blood Pressure 90/61 10/11/2018 3:53 PM REAL ESTATE TEACHER Pulse 62 10/11/2018 3:53 PM REAL ESTATE TEACHER Temperature 35.9 ??C (96.7 ??F) 07/16/2018 4:30 PM CS T Respiratory Rate - - Oxygen Saturation 97% 10/11/2018 3:53 PM REAL ESTATE TEACHER Inhaled Oxygen Concentration - - Weight 61.3 kg (135 lb 3.2 oz) 10/11/2018 3:53 P M REAL ESTATE TEACHER Height 174.3 cm (5' 8.62) 07/16/2018 4:30 PM CS T Body Mass Index 20.19 07/16/2018 4:30 PM REAL ESTATE TEACHER Plan of Treatment Health Maintenance Due Date [...] 03/07/2014, Additional history exists COVID-19 vaccine series ( season) 2024 Influenza for age 50-64 04/21/2024 05/28/20 18, 05/29/2017, 05/29/2017, Additional history exists Tdap Completed 03/05/2013 Hepatitis C screening for age 18-79 Completed 03/07/2014 Pneumococcal series for age 6-64 Aged Out No longer eligible based on patient's age to complete this topic Procedures Procedure Name Priority Date/Time Associated Diagnosis Comments AERIAL GUNNER THIN PREP PAP SCREEN IMAGED Routine 03/27/2018 [...] Recently Relevant to Health Maintenance Results * AERIAL GUNNER THIN PREP PAP SCREEN IMAGED [[id number]] (03/27/2018 10:00 AM CDT) Case Report Gynecologic Cytology Report ? Case: [id number] ? Authorizing Provider: ??Shaye June ? Collected: ? 03/27/2018 1000 ? RED Ruiz ? Ordering Location: ? [facility] ?? Received: ?03/27/2018 1119 ? Clinic ? First Screen: ?Barbara Velázquez ? Specimen: ?AERIAL GUNNER ThinPrep Vial Screening, Cervical ? 04/07/2018 3:14 PM CDT [facility] INTERPRETATION/ RESULT NEGATIVE FOR INTRAEPITHELIAL LESION OR MALIGNANCY (NIL) (none) 04/07/2018 3:14 PM CDT [facility] LABORAT[facility]-C ENTRAL LABORATORY IMEN ADEQUACY Satisfactory for evaluation Endocervical cells cannot be evaluated due to severe atrophy 04/07/2018 3:14 PM CDT [facility] LABORAT[facility]-C ENTRAL LABORATORY HPV REQUEST HPV if ASCUS 04/07/2018 3:14 PM CDT [facility] Date of LMP 200704/07/2018 3:14 PM CDT [facility]ORAT[facility]-C ENTRAL LABORATORY Last Pap Date 03/11/15 04/07/2018 3:14 PM CDT [facility]-C ENTRAL LABORATORY Last Pap Result NIL 8 3:14 PM CDT [facility]-C ENTRAL LABORATORY Abnormal Pap or Pierre Part Bx in last 5 years No 04/07/2018 3:14 PM CDT [facility] Menstrual Status Postmenopausal 04/07/2018 3:14 PM CDT [facility] Pierre Part Bx Done Today No 04/07/2018 3:14 PM CDT [facility] Additional Information None given 04/07/2018 3:14 PM CDT [facility] Automated Review Successful 04/07/2018 3:14 PM CDT [facility] Comment:Specimen processed s uccessfully by automated rug sizer device, ThinPrep Imaging System, [employer] Note The pap test is a [...] lesions. Cytology is screened and interpreted at [facility] - [address], [place] [address] and [facility] - [address]; [place] [address] and [facility] - [address]; [place] [address] and [facility] [address]; [place] [address] 04/07/2018 3:14 PM CDT [facility] Other (Cervical) Non-Blood / Unknown 03/27/2018 10:00 AM CDT 03/27/2018 11:19 AM CDT Shaye Menjivar NP PATHOLOGY /CYTOLOGY [facility] [address] [place] [address], * LIPID PANEL (03/27/2018 9:49 AM CDT) CHOLESTEROL,TOTAL 174 100 - 199 mg/dL 03/27/2018 9:15 PM CDT [facility] TRIGLYCERIDES 78 <150 mg/dL 03/27/2018 9:15 PM CDT [facility] HDL CHOLESTEROL 68 >40 mg/dL 8 9:15 PM CDT [facility] NON-HDL CHOLESTEROL 106 <145 mg/dl 03/27/2018 9:15 PM CDT [facility] CHOL/HDL RATIO 2.56 <4.50 03/27/2018 9:15 PM CDT [facility] LDL CHOLESTEROL 90 <=130 mg/dL 03/27/2018 9:15 PM CDT [facility] PROVIDER ORDERED STATUS RANDOM 03/27/2018 9:15 PM CDT [facility] Blood BLOOD SPECIMEN / Unknown Venipuncture / Unknown 03/27/2018 9:49 AM CDT 03/27/2018 9:49 AM CDT Shaye Menjivar NP CHEMISTRY [facility] [address] [place] [address], [place] * XR MAMMO BILAT SCREENING (03/27/2018 9:18 AM CDT) Anatomical Region Laterality Modality BREASTS, Breast Left, Breast Right Bilateral Mammography Impressions 03/27/2018 12:33 PM CDT ??There is no radiographic evidence for malignancy. ??Recommend annual mammograms. A lay language report of this examination will be provided to the patient. MAMMOGRAM ASSESSMENT: ??ACR 2 Benign Narrative 03/27/2018 12:33 PM CDT XR MAMMO BILAT SCREENING [[id number]] CLINICAL HISTORY: ??This is an asymptomatic 57 y.o. patient. INDICATION FOR EXAM: Mammogram Screening. TECHNIQUE: CC & MLO views were obtained. ??This digital study was evaluated with the assistance of Computer-Aided Detection. COMPARISON FILMS: Yes 03/16/17 [facility] 03/15/16 [facility] FINDINGS: ??Mammographically, the breast tissue is heterogeneously dense. ?? No suspicious masses or microcalcifications. ??Benign appearing calcifications within both breasts and Benign appearing asymmetry within left breast. Shaye Menjivar NP MAMMO * ANTI HCV (03/07/2014 9:02 AM CDT) HEPATITIS C ANTIBODY Non-Reacti ve Non-Reacti ve 03/07/2014 1:35 PM CDT [facility] Blood specimen (specimen) BLOOD SPECIMEN / Unknown Venipuncture / Unknown 03/07/2014 9:02 AM CDT 03/07/2014 9:03 AM CDT Narrative [facility] - 03/07/2014 1:35 PM CDT Antibodies to HCV not detected; does not exclude the possibility of exposure to HCV. Shaye Menjivar BLOCK CAPTAIN SEND OUTS [facility] [address] [place] [address], from Last 3 Months or Most Recently Relevant to Health Maintenance Care Teams Media Associate Relationship Specialty Start Date End Date Pcp, No . PCP - General 10/11/18 Cammy Kent MD Surgery - Orthopedics 03/22/17
--- OUTSIDE RECORDS SUMMARY | 2024-06-11 16:42 | XMS_ITS | Encounter Summary ---
Author Organization [facility] Address [address], [place] [address] Care Team Providers Care Garment Turner Name Role Phone Unavailable Primary Care Provider Unavailabl e Encounter Details Date Type Department Care Team (Late st Contact Info) Description 03/07/2024 8:30 AM CDT Telemedicine [place] [address] [place] [address]. [place], [place] [address] Milka Obando MD [address] [place] [address] Localized osteoporosis with current pathological fracture, initial encounter (Primary Dx); Stress fracture of lumbar vertebra, initial encounter; Hypothyroidism (acquired) ([facility]) Social History Tobacco Use Types Packs/Day Years Used Date Smoking Tobacco: Never Assessed Sex and Gender Information Value Date Recorded Sex Assigned at Female 03/06/2024 7:33 PM CDT Gender Identity Female 03/06/2024 7:33 PM CDT Sexual Orientation Straight 03/06/2024 7: 33 PM CDT documented as of this encounter Progress Notes * Milka Obando MD - 03/07/2024 8:30 AM CDT [facility] Department of Endocrinology, Diabetes and Metabolism Clinic Note Name: Yazmin Mendes This visit was conducted via video. Reason for visit: osteoporosis HPI: Yazmin Mendes is a 63 y.o. female with hypothyroidism referred for evaluation of osteoporosis. She started having low back pain since October 2023. In January had an MRI of lumbar spine which showed bilateral L4 an L5 pedicle fractures. She denies any trauma or fall. Prior to that, she was diagnosed with osteopenia since 2014 and started Fosamax in 2019 which still takes dose of 35 mg once a week. Recent labs include normal calcium, PTH, creatinine, GFR, alkaline phosphatase, phosphorus, magnesium. Her last DXA in 09/2022 showed T-score of - 0.6 at lumbar spine, left femoral neck -1.7, right femoral neck -1.9. Tolerates Fosamax well without side effects, no heartburn, abdominal pain. Denies dental problems expect for gum recession. Osteoporosis Risk Assessment: MENOPAUSELMP: in her 50s HORMONE THERAPY: no FH OF OSTEOPOROSIS: no FRACTURE: L4/L5 STEROID USE: denies KIDNEY STONES: denies TOBACCO USE: denies ETOH USE: denies ANOREXIA/BULEMIA: denies CALCIUM INTAKE: takes calcium carbonate 600 mg daily. Past Medical, Social and Family History, Medications and Allergies: Reviewed Review of Systems: Complete Review of Systems is negative, unless noted in HPI Physical Examination: General: Well-appearing Eyes: Extraocular motions grossly intact with no conjunctival injection or proptosis Neck: No visible thyroid enlargement Respiratory: Breathing comfortably Neurologic: Alert, oriented, answering questions appropriately Psychiatric: Affect euthymic, thought process linear and goal-directed Labs/imaging: Reviewed and relevant values summarized in the HPI. Assessment/Plan: 1. Localized osteoporosis with current pathological fracture, initial encounter 2. Stress fracture of lumbar vertebra, initial encounter 3. Hypothyroidism (acquired) ([facility]) We will obtain work-up for secondary causes of osteoporosis. Recommended calcium intake between diet and supplements is 1200 mg a day in total. Vitamin D intake should be 1000 international units a day. She is taking Fosamax low dose 35 mg weekly. Other treatment options were discussed including bisphosphonates, denosumab and anabolics. Discussed risk of ONJ and Atypical Fractures. Continue Levothyroxine. I will review labs and update the patient with results and plan. Thank you for allowing me to participate in the care of this patient. Please let me know if you have any questions. Milka Coronel MD Airline Attendant [facility] documented in this encounter Plan of Treatment Not on file documented as of this encounter Results * Creatinine, Urine 24 Hr (03/11/2024 8:42 AM CDT) Urine Volume 2,100 mL 03/11/2024 10:25 AM CDT [facility] Creatinine, Urine, Random 50 >20 mg/dL 03/11/2024 10:25 AM CDT [facility] Creatinine, Urine, 24 Hours 1,050 670 - 1,590 mg/24 Hr 03/11/2024 10:25 AM CDT [facility] Urine Non-blood Collection / Unknown 03/11/2024 8:42 AM CDT 03/11/2024 8:42 AM CDT Milka Obando MD LAB_1 Performing Organization Address [facility] Co de Phone Number [facility] [address] [place] [address] [address] [place] [address] * Calcium Urine 24 Hr (03/11/2024 8:42 AM CDT) Urine Volume 2,100 mL 03/11/2024 1:49 PM CDT [facility] Calcium, Urine, Random 14.2 mg/dL 03/11/2024 1:49 PM CDT [facility] Calcium, Urine, 24 Hours 298 100 - 300 mg/24 hr 03/11/2024 1:49 PM CDT [facility] Creatinine, Urine, Random 47 >20 mg/dL 03/11/2024 1:49 PM CDT [facility] Urine Non-blood Collection / Unknown 03/11/2024 8:42 AM CDT 03/11/2024 8:42 AM CDT Milka Obando MD LAB_1 Performing Organization Address City/[facility]/ZIP Co de Phone Number [facility] [address] [place] [address], [facility] [id number] [place] [phone] * Celiac Disease Panel and IGA (if needed) (03/08/2024 8:51 AM CDT) IgA, Serum 282 69 - 517 mg/dL 03/11/2024 12:45 PM CDT [facility] Tissue Transglutaminase Antibody, IgA 0.4 0.0 - 6.9 U/mL 03/11/2024 12:45 PM CDT [facility] Tissue Transglutaminase Antibody, IgA Interpretation Negative Negative 03/11/2024 12:45 PM CDT [facility] Blood Venipuncture / Unknown 03/08/2024 8:51 AM CDT 03/08/2024 8:51 AM CDT Milka Obando MD LAB_1 Performing Organization Address City/State/[facility] Co de Phone Number [facility] [address] * Renal Function Panel (03/08/2024 8:51 AM CDT) Sodium 141 136 - 145 mmol/L 03/08/2024 4:[address] [facility] Potassium 4.0 3.5 - 5.1 mmol/L 03/08/2024 4:[address] [facility] Chloride 105 98 - 109 mmol/L 03/08/2024 4:[address] [facility] CO2 25 20 - 29 mmol/L 03/08/2024 4:[address] [facility] Anion Gap 11 6 - 16 mmol/L 03/08/2024 4:[address] [facility] Calcium 10.0 8.4 - 10.4 mg/dL 03/08/2024 4:[address] [facility] BUN 15 7 - 26 mg/dL 03/08/2024 4:[address] [facility] Creatinine 0.96 0.55 - 1.02 mg/dL 03/08/2024 4:[address] [facility] Albumin 3.8 3.5 - 5.0 g/dL 03/08/2024 4:[address] [facility] Phosphorus 3.6 2.3 - 4.7 mg/dL 03/08/2024 4:04 PM T [facility] Glucose 81 70 - 100 mg/dL 03/08/2024 4:04 PM CDT [facility] Comment:The given reference range is for the fasting state. Non-fasting reference range for glucose is 70 - 180 mg/dL. GFR, Estimated >60 >60 mL/min/1.7 3m2 03/08/2024 4:04 PM CDT [facility] Hours Fasting 11.0 8 - 12 Hours 03/08/2024 4:04 PM T [facility] Blood Venipuncture / Unknown 03/08/2024 8:51 AM CDT 03/08/2024 8:51 AM CDT Milka Obando MD LAB_1 Performing Organization Address City/[facility]/ZIP Co de Phone Number [facility] [address] [place] [address] [address] [place] [address] * Vitamin D 25-Hydroxy, Total (03/08/2024 8:51 AM CDT) Vitamin D, 25-OH, Total 52 30 - 80 ng/mL 03/08/2024 3:45 PM CDT [facility] Blood Venipuncture / Unknown 03/08/2024 8:51 AM CDT 03/08/2024 8:51 AM CDT Milka Obando MD LAB_1 [facility] [address] [place], [place] [address] * Protein ELP (Serum) (03/08/2024 8:51 AM CDT) Total Protein 6.7 6.4 - 8.3 g/dL 03/11/2024 11:07 AM CDT [facility] Albumin 4.0 3.4 - 4.8 g/dL 03/11/2024 11:07 AM CDT [facility] Alpha 1 0.2 0.2 - 0.5 g/dL 03/11/2024 11:07 AM CDT [facility] Alpha 2 0.6 0.5 - 1.1 g/dL 03/11/2024 11:07 AM CDT [facility] Beta 0.8 0.6 - 1.1 g/dL 03/11/2024 11:07 AM CDT [facility] Gamma 1.0 0.7 - 1.6 g/dL 03/11/2024 11:07 AM CDT [facility] Monoclonal Carlito 0.0 <=0.0 g/dL 03/11/2024 11:07 AM CDT [facility] Interpretation No monoclonal protein is detected in the serum. 03/11/2024 11:07 AM CDT [facility] Signed Out By [facility] 03/11/2024 11:07 AM CDT [facility] Blood Venipuncture / Unknown 03/08/2024 8:51 AM CDT 03/08/2024 8:51 AM CDT Milka Obando MD LAB_1 Performing Organization Address City/[facility]/ZIP Co de Phone Number [facility] [address] * (ABNORMAL) TSH (03/08/2024 8:51 AM CDT) TSH, Sensitive 4.82(H) 0.30 - 4.50 uIU/mL 03/08/2024 3:24 PM CDT [facility] Blood Venipuncture / Unknown 03/08/2024 8:51 AM CDT 03/08/2024 8:51 AM CDT Milka Obando MD LAB_1 [facility] [address] documented in this encounter Visit Diagnoses Diagnosis Localized osteoporosis with current pathological fracture, initial encounter- Primary Stress fracture of lumbar vertebra, initial encounter Hypothyroidism (acquired) (C) Unspecified hypothyroidism documented in this encounter
--- OUTSIDE RECORDS SUMMARY | 2024-06-11 16:42 | XMS_ITS | Encounter Summary ---
Author Organization [facility] Address [address], [place] [address] Care Team Providers Care Waiter/Waitress Second Class Name Role Phone Unavailable Primary Care Provider Unavailabl e Encounter Details Date Type Department Care Team (Late st Contact Info) Description 03/08/2024 8:30 AM CDT Lab Visit [facility] [address] [place] [address] Routine general medical examination at health care facility (Primary Dx); Localized osteoporosis with current pathological fracture, initial [...] Procedure Name Priority Date/Time Associated Diagnosis Comments CELIAC DISEASE REFLEX WITH IGA Routine 03/08/2024 8:51 AM CDT Localized osteoporosis with current pathological fracture, initial encounter Stress fracture of lumbar vertebra, initial encounter VITAMIN D 25-HYDROXY, TOTAL Routine 03/08/2024 8:51 AM CDT Localized osteoporosis with current pathological fracture, initial encounter Stress fracture of lumbar vertebra, initial encounter Hypothyroidism (acquired) ([facility]) RENAL FUNCTION PANEL Routine 03/08/2024 8:51 AM CDT Localized osteoporosis with current pathological fracture, initial encounter Stress fracture of lumbar vertebra, initial encounter Hypothyroidism (acquired) ([facility]) TSH, SENSITIVE Routine 03/08/2024 8:51 AM CDT Localized osteoporosis with current pathological fracture, initial encounter Stress fracture of lumbar vertebra, initial encounter Hypothyroidism (acquired) ([facility]) PROTEIN ELP (SERUM) Routine 03/08/2024 8:51 AM CDT Localized osteoporosis with current pathological fracture, initial encounter Stress fracture of lumbar vertebra, initial encounter Hypothyroidism (acquired) ([facility]) documented in this encounter Results * Celiac Disease Panel and IGA (if needed) (03/08/2024 8:51 AM CDT) IgA, Serum 282 69 - 517 mg/dL 03/11/2024 12:45 PM CDT [facility] Tissue Transglutaminase Antibody, IgA 0.4 0.0 - 6.9 U/mL 03/11/2024 12:45 PM CDT [facility] Tissue Transglutaminase Antibody, IgA Interpretation Negative Negative 03/11/2024 12:45 PM CDT [facility] Blood Venipuncture / Unknown 03/08/2024 8:51 AM CDT 03/08/2024 8:51 AM CDT Milka Obando MD LAB_1 [facility] [address] * Renal Function Panel (03/08/2024 8:51 AM CDT) Sodium 141 136 - 145 mmol/L 03/08/2024 4:04 PM T [facility] Potassium 4.0 3.5 - 5.1 mmol/L 03/08/2024 4:04 PM T [facility] Chloride 105 98 - 109 mmol/L 03/08/2024 4:04 PM T [facility] CO2 25 20 - 29 mmol/L 03/08/2024 4:04 PM T [facility] Anion Gap 11 6 - 16 mmol/L 03/08/2024 4:04 PM [facility] Calcium 10.0 8.4 - 10.4 mg/dL 03/08/2024 4:04 PM [facility] BUN 15 7 - 26 mg/dL 03/08/2024 4:04 PM [facility] Creatinine 0.96 0.55 - 1.02 mg/dL 03/08/2024 4:04 PM [facility] Albumin 3.8 3.5 - 5.0 g/dL 03/08/2024 4:04 PM [facility] Phosphorus 3.6 2.3 - 4.7 mg/dL 03/08/2024 4:04 PM [facility] Glucose 81 70 - 100 mg/dL 03/08/2024 4:04 PM [facility] Comment:The given reference range is for the fasting state. Non-fasting reference range for glucose is 70 - 180 mg/dL. GFR, Estimated >60 >60 mL/min/1.7 3m2 03/08/2024 4:04 PM [facility] Hours Fasting 11.0 8 - 12 Hours 03/08/2024 4:04 PM [facility] Blood Venipuncture / Unknown 03/08/2024 8:51 AM CDT 03/08/2024 8:51 AM CDT Milka Obando MD LAB_1 Performing Organization Address [facility]/ZIP Co de Phone Number [facility] [address] [place] [address] [address] [place] [address] * Vitamin D 25-Hydroxy, Total (03/08/2024 8:51 AM CDT) Vitamin D, 25-OH, Total 52 30 - 80 ng/mL 03/08/2024 3:45 PM CDT [facility] Blood Venipuncture / Unknown 03/08/2024 8:51 AM CDT 03/08/2024 8:51 AM CDT Milka Obando MD LAB_1 [facility] [address] * Protein ELP (Serum) (03/08/2024 8:51 AM CDT) Total Protein 6.7 6.4 - 8.3 g/dL 03/11/2024 11:07 AM CDT [facility] Albumin 4.0 3.4 - 4.8 g/dL 03/11/2024 11:07 AM CDT [facility] Alpha 1 0.2 0.2 - 0.5 g/dL 03/11/2024 11:07 AM CDT [facility] Alpha 2 0.6 0.5 - 1.1 g/dL 03/11/2024 11:07 AM CDT [facility] Beta 0.8 0.6 - 1.1 g/dL 03/11/2024 11:07 AM CDT [facility] Gamma 1.0 0.7 - 1.6 g/dL 03/11/2024 11:07 AM CDT [facility] Monoclonal Carlito 0.0 <=0.0 g/dL 03/11/2024 11:07 AM CDT [facility] Interpretation No monoclonal protein is detected in the serum. 03/11/2024 11:07 AM CDT [facility] Signed Out By [facility] 03/11/2024 11:07 AM CDT [facility] Blood Venipuncture / Unknown 03/08/2024 8:51 AM CDT 03/08/2024 8:51 AM CDT Milka Obando MD LAB_1 [facility] [address] * (ABNORMAL) TSH (03/08/2024 8:51 AM CDT) TSH, Sensitive 4.82(H) 0.30 - 4.50 uIU/mL 03/08/2024 3:24 PM CDT [facility] Blood Venipuncture / Unknown 03/08/2024 8:51 AM CDT 03/08/2024 8:51 AM CDT Milka Obando MD LAB_1 [facility] [address] documented in this encounter Visit Diagnoses Diagnosis Routine general medical examination at health care facility- Primary Routine general medical examination at a health care facility Localized osteoporosis with current pathological fracture, initial encounter Stress fracture of lumbar vertebra, initial encounter Hypothyroidism (acquired) ([facility]) Unspecified hypothyroidism documented in this encounter
--- OUTSIDE RECORDS SUMMARY | 2024-06-11 16:42 | XMS_ITS | Continuity of Care Document ---
Author Organization [facility] Address [address] [place] [address] Phone Care Team Providers Care Manganese Heater Name Role Phone Gissel Malone MD Unavailable Unavailable Medications Medication Instructions Dosage Effective Dates (start - stop) Status Comments ALENDRONATE SODIUM (unknown strength) Not Available - Active LEVOTHYROXINE SODIUM (unknown strength) Not Available - Active Procedures Procedure Date Office/Outpatient Visit,[facility] 2023 Advance Directives Directive Yes / No Effective Date File Name No Information Encounters Encounter Description Practice Location Reason(s) For Visit Diagnoses Date Provider Providers Copied on Encounter Office/Outpat ient Visit,[facility] , [address], [place], [place], [id number], [place] tel:[phone] [facility] Spondylolis thesis, lumbar region Kira Chauhan. [facility], [address] [place] [address] [address], [place], [place], [id number], [place]. tel:[phone] Referring Provider: Warner Caba, [facility] [address] [place] [address], [id number]. tel:[phone] Family History Family Member Type Diagnosis Age At Onset Sister Problem (finding) Cancer, unknown type Mother Problem (finding) Cardiovascular disease Sister Problem (finding) Depression Mother Problem (finding) Diabetes mellitus Sister Problem (finding) Diabetes mellitus Father Problem (finding) Cardiovascular disease Payers Payer name Insurance type Covered republican ID Authorbena fermin(s) [facility] [id number] [facility] [id number] Social History Type Description Quantity Date Captured Comments Alcohol Use Details Caffeine Use Details Unknown Tobacco Use Status No Information Smoking Status Never smoker Non-Smoking Tobacco Use Details : No Details Available : No Details Available Sex Female Vital Signs Date / Time: Height Weight BMI Pulse Rate Blood Pressure Temperature Respiratory Rate Body Surface Area Head Circumference Head Circ. Percentile Wt./Uri. Percentile BMI percentile Pulse Ox Inhaled Ox 8:28 AM 69.00 in 62.596 kg (138.00 lbs) 20.3 8 kg/m eter (2) Chief Complaint And Reason For Visit No Information Reason For Referral Reason For Referral No Information History Of Present Illness Encounter Date Complaint History Of Prese nt Illness No Information Functional Status Date Functional Assessmen t No Information Instructions Date Instruction Additional Infor mation No Information Assessments Type Assessment Date No Information Patient Care Teams Name Effective Dates (start - stop) Status Members No Information
--- OUTSIDE RECORDS SUMMARY | 2024-06-11 16:42 | XMS_ITS | Encounter Summary ---
Author Organization [facility] Address [address] [place] [address] Care Team Providers Care Help Aid Name Role Phone Unavailable Primary Care Provider Unavailabl e Reason for Visit * Reason Comments Lab Orders Needed Encounter Details Date Type Department Care Team (Late st Contact Info) Description 03/07/2024 Telephone [facility] [address] [place] [address] Milka Obando MD [address] [place], [place] [phone] Lab Orders Needed Social History Tobacco Use Types Packs/Day Years Used Date Smoking Tobacco: Never Assessed Sex and Gender Information Value Date Recorded Sex Assigned at Female 03/06/2024 7:33 PM CDT Gender Identity Female 03/06/2024 7:33 PM CDT Sexual Orientation Straight 03/06/2024 7: 33 PM CDT documented as of this encounter Nursing Notes * Trudy Astorga RN - 03/19/2024 10:12 AM CDT Visit note and phone encounter faxed to Yosef Dillon-Dr. David Mace at [phone] * Milka Obando MD - 03/13/2024 4:41 PM CDT Called patient to review labs for secondary work-up of osteoporosis which is negative. Only TSH is elevated and I recommended increasing levothyroxine to 75 mcg once a day from 50 mcg. I reviewed with patient her recent physical activities such as weight lifting and she denies any. Iinformed that pedicle fractures are rare and not the typical osteoporotic/fragility fractures. Possible causes include trauma, degenerative spine disease, prolonged bisphosphonate use, and spinal surgery. She is taking Fosamax low dose of 35 mg since 2019 and I recommend to stop it after completingthe 5 years. I offered starting treatment as it was an osteoporotic fracture vs monitoring with repeat DXA scan in 1 year. The patient elected to monitor. We will plan to follow up in 1 year or sooner PRN. * Rose Olson - 03/07/2024 3:39 PM CDT Patient on Lab Only Visit Schedule, no lab orders found in patient's chart. Please review and enter Future Lab Orders or notify the patient that lab work is not needed. Lab Only Visit scheduled for:03/08/2024 documented in this encounter Plan of Treatment Not on file documented as of this encounter Visit Diagnoses Not on filedocumented in this encounter
== END 2024-06-10 08:58 | disposition home or self-care (01) ==
LOC: NFLDREF 06-11 16:40
PROVIDERS: PCP Internal Medicine; Referring Provider Internal Medicine; Visit Provider Internal Medicine
DX: E03.9 Hypothyroidism, unspecified (principal)
CPT/HCPCS: 84443

== ENCOUNTER 2024-07-31 15:17 | Outpatient (CLI) | payer BC, SELFPAY ==
--- NOTE | 2024-07-31 15:20 | CRLHL7_ITS ---
For Patients: As a result of the Century Cures Act, medical imaging exams and procedure reports are released immediately into your electronic medical record. You may view this report before your referring provider. If you have questions, please contact your health care provider. BILATERAL SCREENING MAMMOGRAM WITH COMPUTER-AIDED DETECTION AND TOMOSYNTHESIS TECHNIQUE: CC and MLO views were obtained. These mammographic images have been obtained using full-field digital technique. These mammographic images were interpreted with the benefit of computer-aided detection. Breast Tomosynthesis was used in this interpretation. COMPARISON FILM: 07/21/23, 04/06/22, 04/15/21. FINDINGS: The breasts are heterogeneously dense, which may obscure small masses. IMPRESSION: There is no radiographic evidence for malignancy. ASSESSMENT: BI-RADS Category 1: Negative RECOMMENDATION: Routine screening mammogram in 1 year. A lay language report of this examination will be provided to the patient. Dario Kelly M.D. Diagnostic Radiologist [email or web address] SP/Dictated by: Dario Kelly MD @ 08/01/2024 8:52:00 AM (Electronically Signed)
== END 2024-07-31 15:18 | disposition home or self-care (01) ==
LOC: MAMMO 15:17
PROVIDERS: PCP Internal Medicine; Visit Provider Internal Medicine
DX: Z12.31 Encounter for screening mammogram for malignant neoplasm of breast (principal); R92.333 Mammographic heterogeneous density, bilateral breasts
CPT/HCPCS: 77063; 77067

== ENCOUNTER 2025-01-03 09:18 | Outpatient (CLI) | payer MEDICARE, BC, SELFPAY | END 2025-01-03 09:19 | disposition home or self-care (01) | LOC: NFLDREF 01-10 00:39 | PROVIDERS: PCP Internal Medicine; Referring Provider Internal Medicine; Visit Provider Internal Medicine | DX: M85.80 Other specified disorders of bone density and structure, unspecified site (principal); E03.9 Hypothyroidism, unspecified | CPT/HCPCS: 82306; 84443 ==

== ENCOUNTER 2025-02-10 08:15 | Outpatient (RCR) | payer MEDICARE, BC, SELFPAY | END 2025-03-12 14:42 | disposition home or self-care (01) | PROVIDERS: PCP Internal Medicine; Visit Provider Internal Medicine | DX: M67.912 Unspecified disorder of synovium and tendon, left shoulder (principal); Z51.89 Encounter for other specified aftercare | CPT/HCPCS: 97110; 97140; 97161 ==

== ENCOUNTER 2025-06-09 06:05 | Day surgery (SDC) | payer MEDICARE, BC, SELFPAY ==
[2025-06-09] MEDS: LACTATED RINGERS 1000 ML 1,000 ML 100 ML IV ×2 (06:15→09:10)
[2025-06-09 06:33] VITALS: BP 131/92; PULSE 52; RESP 16; TEMP 36.6; O2SAT 98; BMI 19.2
[2025-06-09] MEDS: SODIUM CHLORIDE 0.9 % (FLUSH) 10 ML SYRINGE IVF (06:37)
[2025-06-09] MEDS: BUPIVACAINE 0.25% 30 ML INJECTION (07:40)
--- NOTE | 2025-06-09 08:15 | P.ANES_ITS ---
Anesthesia Charges Start Date/Time Anesthesia Start Date: 06/09/25 Anesthesia Start Time: 07:14 Stop Date/Time Anesthesia Stop Date: 06/09/25 Anesthesia Stop Time: 09:32 Coding CPT Codes CPT Codes: ANESTH LOWER LEG BONE SURG - 46261 ([id number]) P2 - PATIENT W/MILD SYST DISEASE, QK - SENIOR DESIGN ENGINEER 2-4 CNCRNT ANES PROC, QX - ATTENDING PATHOLOGIST SVC W/ MD MED DIRECTION
--- NOTE | 2025-06-09 08:15 | W.ANESCHARGE ---
Anesthesia Charges Start Date/Time Anesthesia Start Date: 06/09/25 Anesthesia Start Time: 07:14 Stop Date/Time Anesthesia Stop Date: 06/09/25 Anesthesia Stop Time: 09:32 Coding CPT Codes CPT Codes: ANESTH LOWER LEG BONE SURG - 05629 ([id number]) P2 - PATIENT W/MILD SYST DISEASE, QK - LEGAL COUNSEL 2-4 CNCRNT ANES PROC, QX - GENERAL LABORER SVC W/ MD MED DIRECTION
[2025-06-09 09:30] VITALS: BP 120/76; PULSE 61; RESP 16; TEMP 36.6; O2SAT 100
--- NOTE | 2025-06-09 09:32 | P.ANES_ITS ---
Anesthesia Charges Start Date/Time Anesthesia Start Date: 06/09/25 Anesthesia Start Time: 07:14 Stop Date/Time Anesthesia Stop Date: 06/09/25 Anesthesia Stop Time: 09:32 Coding CPT Codes CPT Codes: ANESTH LOWER LEG BONE SURG - 82021 ([id number]) P2 - PATIENT W/MILD SYST DISEASE, QK - SOCIAL MEDIA MARKETER 2-4 CNCRNT ANES PROC, QX - CALL CENTER SUPERVISOR SVC W/ MD MED DIRECTION
--- NOTE | 2025-06-09 09:32 | W.ANESCHARGE ---
Anesthesia Charges Start Date/Time Anesthesia Start Date: 06/09/25 Anesthesia Start Time: 07:14 Stop Date/Time Anesthesia Stop Date: 06/09/25 Anesthesia Stop Time: 09:32 Coding CPT Codes CPT Codes: ANESTH LOWER LEG BONE SURG - 74318 ([id number]) P2 - PATIENT W/MILD SYST DISEASE, QK - METER SHOP SUPERVISOR 2-4 CNCRNT ANES PROC, QX - HOSPITAL NURSING ASSISTANT SVC W/ MD MED DIRECTION
--- NOTE | 2025-06-09 09:40 | W.PODPROC_ITS ---
Date of Procedure: 06/09/25 Surgeon: Bridger Andrade DPM Pre-op Diagnosis: Hallux valgus with bunion left Post-op Diagnosis: Hallux valgus with bunion left Type of Procedure: Lapidus bunionectomy left Indications: Patient has longstanding painful bunion deformity. She has elected to have surgical intervention. I reviewed the procedure, recovery, expectation of potential complications. These include but are not limited to: Poor wound healing, infection, under correction, over-correction, nonunion, delayed union, malunion, nerve injury, hardware irritation or failure, complex regional pain syndrome, potential need for future surgery, deep venous thrombosis, pulmonary embolism and possible . She understands risks written consent was obtained. All questions answered. Site was marked. Procedure Description: Patient is from the operating room placed in supine position on operating table. IV sedation was initiated 30 mL of 0.25% Marcaine plain local anesthetic injected into the left foot. She was prepped and draped in a sterile fashion. Standard time-out protocol followed. Left foot was exsanguinated and the tourniquet inflated to 250 mm Hg. A dorsomedial linear incision was made over the 1st metatarsophalangeal joint that extended proximally to the metatarsal cuneiform joint. The incision was carried down through skin subcutaneous tissues. T-shaped capsular incision was made at the metatarsophalangeal joint and capsular tissue reflected free from the head of the 1st metatarsal. Blunt dissection was carried down into the 1st intermetatarsal space a standard lateral release was performed. The adductor tendon, plantar lateral capsule and dorsal fibular sesamoidal ligaments were all released. The 1st metatarsal cuneiform joint was incised. The joint distractor applied and the joint distracted. Using an osteotome and curette the cartilage and subchondral bone was removed from the 1st metatarsal base and distal medial cuneiform. The area was thoroughly irrigated normal sterile saline. Reduction was made in all 3 p lanes and C-arm confirmed excellent correction. The opposing fusion surfaces were then fenestrated with a drill and fish-scaled with an osteotome. Small incision was made just lateral to the 2nd metatarsal neck. The Lapifuse jig was then applied and the 1st ray was reduced into anatomic alignment in all 3 planes. C-arm confirmed position. 4.0 mm cannulated screw then placed plantar medial to dorsal lateral across the fusion site into the middle cuneiform. C- arm confirmed position. Excellent compression across the fusion site noted. 5 hole pre contoured plate applied dorsal medial. 3.5 mm locking screws x3 placed with 2 distal and 2 proximal. First metatarsal head was then remodeled with a rotary bur and sagittal saw. Area was thoroughly irrigated normal sterile saline. Final C-arm images confirmed excellent correction of the bunion deformity. Hardware in appropriate alignment. 0.5 mL of DBM placed at the fusion site. First MPJ joint capsules and remodeled and repaired with 3-0 Vicryl. Subcutaneous tissues reapproximated over the plate with 4-0 Monocryl. Subcutaneous tissues reapproximated 4-0 Monocryl along the incision and the skin closed with 4-0 Prolene. Sterile dressing was applied. The tourniquet was released and normal capillary fill time returned to all digits. She was transferred from OR to same-day surgery with vascular status intact and vital signs stable. She is given both written and verbal postop instructions. She will be discharged home per same-day surgery protocol. Anesthesia: MAC and local Hemostasis: ankle Estimated blood loss (mL): 5 Provider Operated C-arm: C-arm was utilized for Lapidus bunionectomy left foot operated performed by Bridger Andrade DPM. Twenty-eight spot images were obtained. Fluoro time was 00.00.24 Implants: [place] Lapifuse plate x1, 4.0 cannulated screw x1, 3.5 mm cortical screw x4 Specimens: none sent Disposition: same day
[2025-06-09 09:45] VITALS: BP 114/75; PULSE 57; RESP 16; O2SAT 99
[2025-06-09 10:00] VITALS: BP 128/73; PULSE 51; RESP 16; O2SAT 100
[2025-06-09 10:15] VITALS: BP 132/70; PULSE 46; RESP 16; O2SAT 100
== END 2025-06-09 10:42 | disposition home or self-care (01) ==
PROVIDERS: PCP Internal Medicine; Visit Provider Podiatrist
PROC: (CPT 28292; principal; 2025-06-09 07:15)
DX: M20.12 Hallux valgus (acquired), left foot (principal); M21.612 Bunion of left foot
CPT/HCPCS: 28297; 01480; 73620; 76000; C1713; J0665; J0690; J1100; J2250; J2371; J2405; J2704; J3010; J7120

== ENCOUNTER 2025-08-04 14:25 | Outpatient (CLI) | payer MEDICARE, BC, SELFPAY ==
--- NOTE | 2025-08-04 14:40 | CRLHL7_ITS ---
For Patients: As a result of the Century Cures Act, medical imaging exams and procedure reports are released immediately into your electronic medical record. You may view this report before your referring provider. If you have questions, please contact your health care provider. INDICATION: BILATERAL SCREENING MAMMOGRAM, ASYMPTOMATIC 64 Y/O FEMALE COMPARISON: 07/31/2024, 07/21/2023, 04/06/2022 TECHNIQUE: Digital mammogram in CC and MLO projections including computer-aided detection (CAD) and tomosynthesis. BREAST COMPOSITION: There are scattered areas of fibroglandular density. FINDINGS: No suspicious findings. ASSESSMENT: BI-RADS 1 Negative RECOMMENDATION: Annual screening mammogram. A lay language report of this examination will be provided to the patient. Dictated by: Dario Kelly MD @ 08/05/2025 08:43:36 (Electronically Signed)
== END 2025-08-04 14:26 | disposition home or self-care (01) ==
LOC: MAMMO 14:26
PROVIDERS: PCP Internal Medicine; Visit Provider Internal Medicine
DX: Z12.31 Encounter for screening mammogram for malignant neoplasm of breast (principal)
CPT/HCPCS: 77063; 77067